=== PATIENT | female | born 1945 | race Caucasian/White ===

== ENCOUNTER 2018-09-08 20:17 | Emergency (ER) | payer OTHER ==
[~2018-09-08] VITALS: Ht 160 cm; Wt 65.8 kg
[2018-09-08 20:34] VITALS: BP_SYST 160
--- NOTE | 2018-09-08 20:42 | NUR ---
Pt placed to ER bed 04, report given to RUFINA Hu.
--- NOTE | 2018-09-08 20:43 | NUR ---
ER Dr. Rehman at bedside examining patient.
[2018-09-08] MEDS ORDERED: KETOROLAC TROMETHAMINE 60 MG/2 ML VIAL IM ONE (21:30)
--- NOTE | 2018-09-08 21:50 | NUR ---
Pt to X-ray via W/C in stable condition.
--- NOTE | 2018-09-08 22:00 | NUR ---
Pt returned from radiology in stable condition.
[2018-09-08 22:50] VITALS: BP_SYST 155
--- NOTE | 2018-09-08 22:50 | NUR ---
Patient given written and verbal discharge instructions and verbalizes understanding. ER MD discussed with patient the results and treatment provided. Patient in stable condition. ID arm band removed. Rx of Tramadol and Motrin given. Patient educated on pain management and to follow up with PMD. Pain Scale 0. Opportunity for questions provided and answered. Medication side effect fact sheet provided.
== END 2018-09-08 22:50 | disposition home or self-care (01) ==
LOC: SED 20:17
DX: S52.532A Colles' fracture of left radius, initial encounter for closed fracture (principal); I10 Essential (primary) hypertension; Z88.0 Allergy status to penicillin; W01.0XXA Fall on same level from slipping, tripping and stumbling without subsequent striking against object, initial encounter; Y93.89 Activity, other specified; Y92.89 Other specified places as the place of occurrence of the external cause; Y99.8 Other external cause status
CPT/HCPCS: 29125; 70160; 73110; 73130; 73564; 96372; 99283; J1885